=== PATIENT | male | born 1995 | race Two or more races ===

== ENCOUNTER 2024-01-31 19:15 | Emergency (ER) | payer MEDICAID, OTHER ==
[~2024-01-31] VITALS: Ht 177.8 cm; Wt 63.5 kg
[2024-01-31] MEDS ORDERED: KETOROLAC TROMETHAMINE INJ 30 MG/ML VIAL ONE (19:32)
[2024-01-31] MEDS: KETOROLAC TROMETHAMINE INJ 60 MG/2 ML VIAL IM ONE (19:41)
[2024-01-31 21:28] VITALS: BP 132/84; TEMP 97.8; O2SAT 98
== END 2024-01-31 21:28 | disposition home or self-care (01) ==
LOC: ER 19:17
DX: M25.572 Pain in left ankle and joints of left foot (principal); Z59.00 Homelessness unspecified; W10.8XXA Fall (on) (from) other stairs and steps, initial encounter; Y93.01 Activity, walking, marching and hiking; Y92.89 Other specified places as the place of occurrence of the external cause; Y99.8 Other external cause status
CPT/HCPCS: 99284; 96372; 73610; 73630; J1885